=== PATIENT | male | born 1950 ===

== ENCOUNTER 2024-12-06 00:51 | Outpatient (CLI) | payer MEDICARE, BC, SELFPAY ==
--- NOTE | 2024-12-06 | DI.MRI_ITS ---
Exam(s) MR CERVICAL SPINE WO EXAM: MR CERVICAL SPINE WO CLINICAL HISTORY: Closed stable burst fx of 1st cervical vertebra, S12.01XA TECHNIQUE: Multiplanar multisequence MRI of the cervical spine was performed without intravenous con trast. COMPARISON: No exams were available for comparison FINDINGS: BONES: There are endplate osteophytes seen at C3-4 through C6-C7 intervertebral disc spaces are helen l. Alignment is normal. There are mild degenerative endplate signal changes seen in the cervical spin e. CERVICAL CORD: Craniovertebral junction is unremarkable. The cervical cord is normal size and signal intensity. SOFT TISSUES: Unremarkable. C2-3: No disc herniation or bulge is identified. No significant central spinal canal or neural forami nal stenosis. C3-4: There is prominence of the osteophyte disc complex. No significant central spinal canal stenos is. Degenerative changes at the uncovertebral joints causing mild narrowing of the right and left ne ural foramen. C4-5: There is prominence of the osteophyte disc complex with mild effacement of the anterior subarac hnoid space. No significant central spinal canal stenosis. Left uncovertebral joint hypertrophy cau ses mild left neural foraminal stenosis. C5-6: There is prominence of the osteophyte disc complex. There is mild effacement of the anterior s ubarachnoid space. No significant central spinal canal stenosis is seen. There is mild right neural foraminal stenosis and mild left neural foraminal stenosis. C6-7: There is mild prominence of the osteophyte disc complex eccentric to the right. No significant central spinal canal or neural foraminal stenosis C7-T1: No disc herniation or bulge is identified. 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 DATA REPOSITORY:
== END 2024-12-06 01:11 ==
PROVIDERS: PCP Hospitalist; Visit Provider Hospitalist
DX: S12.01XA Stable burst fracture of first cervical vertebra, initial encounter for closed fracture (principal)
CPT/HCPCS: 72141

== ENCOUNTER 2025-01-11 00:36 | Outpatient (CLI) | payer MEDICARE, BC, SELFPAY ==
--- NOTE | 2025-01-11 13:03 | DI.CT_ITS ---
Exam(s) CT CERVICAL SPINE WO EXAM: CT CERVICAL SPINE WO CLINICAL HISTORY: CLOSED STABLE BURST FX OF FIRST CERVICAL VERTEBRA, INITIAL ENCOUNT S12.01XA. TECHNIQUE: Imaging Protocol: Axial computed tomography images with coronal and sagittal reformatted images were created and reviewed COMPARISON: MR MR CERVICAL SPINE WO from 12/06/2024 FINDINGS: CERVICAL SPINE: There are multiple fractures of the C1 arch. There are fractures on both sides of the midline of the anterior aspect of the C1 arch. There is bryan roximately 5 mm lateral deviation of the components of the anterior arch relative to the subjacent C2 masses. There are also symmetrical fractures laterally in the C1 laminae. No obvious callus format ion. There are no fracture fragments within the spinal canal and the distance between the anterior aspect of the odontoid and the C1 arch is not increased, measuring 2 mm. There is no evidence of fracture o f the odontoid nor of the C2 vertebral body nor of the other vertebral bodies. Multilevel chronic disc space narrowing at and below C3-4 level incidentally noted.. 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 There there are no fra cture fragments within the spinal canal at this level and no offset of the spinal laminar line nor in creased distance between the anterior cortex of the odontoid and the anterior C1 arch. There is no e vidence of C2 fracture. Multilevel chronic degenerative disc disease. RADIATION DOSE DELIVERED: 474.05mGy.cm Total DLP DATA REPOSITORY: All CT scans at this facility are submitted to the National Radiology Data Registry (NRDR) Dose Index Registry (DIR) with the [employer] ([employer]). RADIATION OPTIMIZATION: All CT scans at this facility use at least one of these dose optimization te chniques: automated exposure control; mA and/or kV adjustment per patient size (includes targeted exa ms where dose is matched to clinical indication); or iterative reconstruction.
== END 2025-01-11 00:56 ==
PROVIDERS: PCP Hospitalist; Visit Provider Neurological Surgery
DX: S12.01XD Stable burst fracture of first cervical vertebra, subsequent encounter for fracture with routine healing (principal); X58.XXXD Exposure to other specified factors, subsequent encounter
CPT/HCPCS: 72125